=== PATIENT | female | born 1980 | race Caucasian/White ===

== ENCOUNTER 2018-10-16 22:27 | Emergency (ER) | payer BC, OTHER ==
[~2018-10-16] VITALS: Ht 160 cm; Wt 72.6 kg
[2018-10-16] MEDS ORDERED: NITROGLYCERIN SUBLINGUAL 0.4 MG BOTTLE OF 25. SL PRN (23:00)
--- NOTE | 2018-10-16 23:15 | RAD ---
PORTABLE CHEST 1V History: Chest pain Comparison: February 19, 2014 Findings: Single view of the chest is submitted. There is no lobar infiltrate, pneumothorax, or effusion. The pericardial cardiac silhouette is within normal limits in size. Impression: 1. There is no radiographic evidence of acute cardiopulmonary disease. Electronically signed by: Richard Gamez MD (10/16/2018 11:12 PM) [facility]
[2018-10-16] MEDS ORDERED: ASPIRIN 325 MG TABLET PO ONE (23:30)
--- NOTE | 2018-10-16 23:34 | PHYS DOC ---
Past Medical History Past Medical History: Anxiety, Arthritis, GERD, Seizure Additional Past Medical Histor: syncopal episodes, back pain, pulmonary nodule Past Surgical History: , Hysterectomy, Tonsillectomy Additional Past Surgical Histo: breast augmentation, left wrist Alcohol Use: Occasionally Drug Use: None Adult General Chief Complaint Chief Complaint: CHEST PAIN HPI HPI Patient is a 37 year old female with history of seizures on medication, acid reflex, anxiety, arthritis, who presents with with multiple complaints. 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 She states this morning she left work and noticed her bilateral lower extremities was swollen. She states they will painful ambulation. Denies any known injury. She states she has tried to elevate them with no relief on the swelling. She is also complaining of intermittent episodes of 8 out of 10 substernal chest pain nonradiating in nature that has been going on for weeks. She states she has history of acid reflex and has been trying to take acid reflex medications with minimal to no relief. Denies any chance she is , she states she's had a hysterectomy. Denies any shortness of breath. Denies any recent hospitalization. Denies any recent long air TRAVEL. Denies any recent surgeries. PCP Dr. Webster Review of Systems Review of Systems Constitutional: Denies fever or chills [] Eyes: Denies change in visual acuity, redness, or eye pain [] HENT: Denies nasal congestion or sore throat [] Respiratory: Denies cough or shortness of breath [] Cardiovascular: Reports chest pain GI: Denies abdominal pain, nausea, vomiting, bloody stools or diarrhea [] : Denies dysuria or hematuria [] Musculoskeletal: Reports bilateral lower extremity swelling with pain Integument: Denies rash or skin lesions [] Neurologic: Denies headache, focal weakness or sensory changes [] All other systems were reviewed and found to be within normal limits, except as documented in this note. Current Medications Current Medications Current Medications Medications (Trade) Dose Ordered Sig/Nick Start Time Stop Time Status Last Admin Dose Admin Aspirin (Danny Aspirin) 325 mg 1X ONCE 10/16/18 23:30 10/16/18 23:31 DC 10/16/18 23:41 325 MG Famotidine (Pepcid Vial) 20 mg 1X ONCE 10/16/18 23:45 10/16/18 23:46 DC 10/16/18 23:41 20 MG Multi-Ingredient Mouthwash/Gargle (Gi Cocktail) 20 ml 1X ONCE 10/16/18 23:45 10/16/18 23:46 DC 10/16/18 23:42 20 ML Nitroglycerin (Nitrostat) 0.4 mg PRN Q5MIN PRN 10/16/18 23:00 10/17/18 22:59 10/16/18 23:42 0.4 MG Allergies Allergies Allergies Coded Allergies Type Severity Reaction Last Updated Verified acetaminophen Allergy Intermediate 10/16/18 Yes adalimumab Allergy Intermediate 10/16/18 Yes etanercept Allergy Intermediate 10/16/18 Yes morphine Allergy Intermediate 02/19/14 No Physical Exam Physical Exam Constitutional: Well developed, well nourished, no acute distress, non-toxic appearance. [] HENT: Normocephalic, atraumatic, bilateral external ears normal, oropharynx moist, no oral exudates, nose normal. [] Eyes: PERRLA, EOMI, conjunctiva normal, no discharge. [] Neck: Normal range of motion, no tenderness, supple, no stridor. [] Cardiovascular:Heart rate regular rhythm, no murmur [] Lungs & Thorax: Bilateral breath sounds clear to auscultation [] Abdomen: Bowel sounds normal, soft, no tenderness, no masses, no pulsatile masses. [] Skin: Warm, dry, no erythema, psoriasis lesions BLE Back: No tenderness, no CVA tenderness. [] Extremities: No tenderness, no cyanosis, no clubbing, ROM intact, +1 edema noted to bilateral lower extremities. Negative Homans sign bilaterally. Neurologic: Alert and oriented X 3, normal motor function, normal sensory function, no focal deficits noted. [] Psychologic: Affect normal, judgement normal, mood normal. [] Current Patient Data Vital Signs Vital Signs Date Time Temp Pulse Resp B/P (MAP) Pulse Ox O2 Delivery O2 Flow Rate FiO2 10/17/18 00:46 80 16 132/80 (97) 100 Room Air 10/16/18 22:45 98.4 98.4 Lab Values Laboratory Tests Test 10/16/18 23:45 10/17/18 00:01 Urine Collection Type Unknown Urine Color Yellow Urine Clarity Clear Urine pH 7.0 Urine Specific Chase 1.015 Urine Protein Negative mg/dL (NEG-TRACE) Urine Glucose (UA) Negative mg/dL (NEG) Urine Ketones (Stick) Negative mg/dL (NEG) Urine Blood Negative (NEG) Urine Nitrite Negative (NEG) Urine Bilirubin Negative (NEG) Urine Urobilinogen Dipstick 0.2 mg/dL (0.2 mg/dL) Urine Leukocyte Esterase Negative (NEG) Urine RBC Occ /HPF (0-2) Urine WBC 0 /HPF (0-4) Urine Squamous Epithelial Cells Few /LPF Urine Bacteria Few /HPF (0-FEW) Urine Opiates Screen Neg (NEG) Urine Methadone Screen Neg (NEG) Urine Barbiturates Neg (NEG) Urine Phencyclidine Screen Neg (NEG) Urine Amphetamine/Methamphetamine Neg (NEG) Urine Benzodiazepines Screen Neg (NEG) Urine Cocaine Screen Neg (NEG) Urine Cannabinoids Screen Neg (NEG) Urine Ethyl Alcohol Neg (NEG) White Blood Count 8.8 x10^3/uL (4.0-11.0) Red Blood Count 4.23 x10^6/uL (3.50-5.40) Hemoglobin 13.6 g/dL (12.0-15.5) Hematocrit 40.7 % (36.0-47.0) Mean Corpuscular Volume 96 fL (79-100) Mean Corpuscular Hemoglobin 32 pg (25-35) Mean Corpuscular Hemoglobin Concent 34 g/dL (31-37) Red Cell Distribution Width 13.0 % (11.5-14.5) Platelet Count 166 x10^3/uL (140-400) Neutrophils (%) (Auto) 54 % (31-73) Lymphocytes (%) (Auto) 33 % (24-48) Monocytes (%) (Auto) 8 % (0-9) Eosinophils (%) (Auto) 5 % (0-3) H Basophils (%) (Auto) 1 % (0-3) Neutrophils # (Auto) 4.7 x10^3uL (1.8-7.7) Lymphocytes # (Auto) 2.9 x10^3/uL (1.0-4.8) Monocytes # (Auto) 0.7 x10^3/uL (0.0-1.1) Eosinophils # (Auto) 0.5 x10^3/uL (0.0-0.7) Basophils # (Auto) 0.1 x10^3/uL (0.0-0.2) Prothrombin Time 12.1 SEC (11.7-14.0) Prothrombin Time INR 0.9 (0.8-1.1) D-Dimer (Gregoria) 0.63 ug/mlFEU (0.00-0.50) H Sodium Level 141 mmol/L (136-145) Potassium Level 4.2 mmol/L (3.5-5.1) Chloride Level 105 mmol/L (98-107) Carbon Dioxide Level 28 mmol/L (21-32) Anion Gap 8 (6-14) Blood Urea Nitrogen 11 mg/dL (7-20) Creatinine 0.9 mg/dL (0.6-1.0) Estimated GFR (Cockcroft-Gault) 69.7 BUN/Creatinine Ratio 12 (6-20) Glucose Level 61 mg/dL (70-99) L Calcium Level 9.1 mg/dL (8.5-10.1) Magnesium Level 2.1 mg/dL (1.8-2.4) Total Bilirubin 0.2 mg/dL (0.2-1.0) Aspartate Amino Transferase (AST) 20 U/L (15-37) Alanine Aminotransferase (ALT) 31 U/L (14-59) Alkaline Phosphatase 27 U/L (46-116) L Creatine Kinase 92 U/L (26-192) Creatine Kinase MB (Mass) 1.0 ng/mL (0.0-3.6) Creatine Kinase MB Relative Index 1.1 % (0-4) Troponin I Quantitative < 0.017 ng/mL (0.000-0.055) BY-Leh-A-Type Natriuretic Peptide 123 pg/mL (0-124) Total Protein 7.1 g/dL (6.4-8.2) Albumin 3.7 g/dL (3.4-5.0) Albumin/Globulin Ratio 1.1 (1.0-1.7) Thyroid Stimulating Hormone (TSH) 4.402 uIU/mL (0.358-3.74) H Laboratory Tests 10/17/18 00:01 Laboratory Tests 10/17/18 00:01 EKG EKG 22:[address] Trejo sinus rhythm heart rate 81 no STEMI[] Radiology/Procedures Radiology/Procedures []PROCEDURE: VENOUS LOWER EXT BILATERAL Bilateral lower extremity venous ultrasound,: History: Bilateral lower extremity swelling Sonographic evaluation including grayscale, color flow and spectral Doppler analysis of the deep veins of the lower extremities was performed. The femoral and popliteal veins demonstrate normal compressibility and normal responses to distal augmentation maneuvers. Color imaging of those vessels shows no evidence of intraluminal clot. The visualized deep veins in both calves are patent. IMPRESSION: There is no sonographic evidence of deep vein thrombosis in either lower extremity. Electronically signed by: Anoop Rutledge MD (10/17/2018 12:46 AM) [facility] DICTATED and SIGNED BY: ANOOP RUTLEDGE MD DATE: 10/17/18 0046 PROCEDURE: PORTABLE CHEST 1V PORTABLE CHEST 1V History: Chest pain Comparison: February 19, 2014 Findings: Single view of the chest is submitted. There is no lobar infiltrate, pneumothorax, or effusion. The pericardial cardiac silhouette is within normal limits in size. Impression: 1. There is no radiographic evidence of acute cardiopulmonary disease. Electronically signed by: Kristin Quiroz MD (10/16/2018 11:12 PM) [facility] DICTATED and SIGNED BY: KRISTIN QUIROZ MD DATE: 10/16/18 2312 Course & Med Decision Making Course & Med Decision Making Pertinent Labs and Imaging studies reviewed. (See chart for details) This is a 37-year-old female patient presenting to the ED today with bilateral lower extremity swelling with pain on ambulation since this morning as well as intermittent episode of chest pain for a couple weeks. Patient is a smoker she was encouraged to consider smoking cessation EKG is negative. Troponin is normal. CBC, CMP with glucose of 61, patient was given juice in the emergency room. Chest x-rays negative for any acute findings. Venous Dopplers of bilateral lower extremities are negative. Heart score 2 Patient was advised to get JOHNY hose for bilateral lower extremities. Elevation of bilateral lower extremities also recommended. Her TSH was 4.402. Encourage her to follow-up with her own PCP for this. Her vitals are stable. She was discharged. Follow-up with PCP as well as ca rdiologist next week Sharonda Disclaimer Sharonda Disclaimer This electronic medical record was generated, in whole or in part, using a voice recognition dictation system. Departure Departure Impression: Primary Impression: Chest pain Additional Impressions: Acid reflux Smoking addiction Edema Hypothyroidism Disposition: HOME, SELF-CARE Condition: STABLE Referrals: SAM HYDE MD (PCP) Follow-up next week ALISA FONTAINE MD follow up next week Patient Instructions: Chest Pain (Nonspecific), Edema, [id number], Smoking Cessation Additional Instructions: You were evaluated in the emergency room, your workup was negative for any acute findings, your TSH was 4.402 let your primary care doctor know this number and he/she will decide if to put you on thyroid medicines. We highly recommend you wear compression stockings and elevate your bilateral lower extremities. Please ensure you are taking your acid reflex medication. Consider smoking cessation. Follow-up with your primary care doctor as well as the provided assistant chief train dispatcher in the course of next week. Please return to the emergency room at any point symptoms worsen. Problem Qualifiers Primary Impression: Chest pain Chest pain type: unspecified Qualified Codes: R07.9 - Chest pain, unspecified Additional Impressions: Acid reflux Esophagitis presence: esophagitis presence not specified Qualified Codes: K21.9 - Gastro-esophageal reflux disease without esophagitis Edema Edema type: unspecified Qualified Codes: R60.9 - Edema, unspecified Hypothyroidism Hypothyroidism type: unspecified Qualified Codes: E03.9 - Hypothyroidism, unspecified SCARLETT BRICENO OVERHAULER October 16, 2018 23:34
[2018-10-16] MEDS ORDERED: LIDO:MAALOX 1:1 20 ML SINGLE DOSE. SWSW ONE (23:45)
[2018-10-16] MEDS ORDERED: FAMOTIDINE 20 MG/2 ML VIAL IVP ONE (23:45)
[2018-10-17 00:01] LABS: BILIRUBIN,URINE NEGATIVE (NEG); CLARITY,URINE CLEAR; COLOR,URINE YELLOW; NITRITE,URINE NEGATIVE (NEG); PROTEIN,URINE NEGATIVE (NEG-TRACE); UROBILINOGEN,URINE 0.2 mg/dL (0.2 mg/dL)
[2018-10-17 00:10] LABS: BARBITURATES NEG (NEG); BENZODIAZEPINES NEG (NEG); CANNABINOIDS NEG (NEG); COCAINE NEG (NEG); METHADONE NEG (NEG); OPIATES NEG (NEG); PHENCYCLIDINE NEG (NEG)
[2018-10-17 00:11] LABS: BASO # 0.1 x10^3/uL (0.0-0.2); BASO % 1 % (0-3); EOS # 0.5 x10^3/uL (0.0-0.7); EOS % 5 % (0-3); HEMATOCRIT 40.7 % (36.0-47.0); HEMOGLOBIN 13.6 g/dL (12.0-15.5); LYMPH # 2.9 x10^3/uL (1.0-4.8); LYMPH % 33 % (24-48); MEAN CORPUSCULAR HEMOGLOBIN 32 pg (25-35); MEAN CORPUSCULAR HGB CONC 34 g/dL (31-37); MEAN CORPUSCULAR VOLUME 96 fL (79-100); MONO # 0.7 x10^3/uL (0.0-1.1); MONO % 8 % (0-9); NEUT # 4.7 x10^3uL (1.8-7.7); NEUT % 54 % (31-73); PLATELET COUNT 166 x10^3/uL (140-400); RED BLOOD COUNT 4.23 x10^6/uL (3.50-5.40); WHITE BLOOD COUNT 8.8 x10^3/uL (4.0-11.0)
[2018-10-17 00:11] LABS: AMPHETAMINE/METHAMPHETAMINE NEG (NEG)
[2018-10-17 00:19] LABS: BACTERIA,URINE FEW /HPF (0-FEW); RBC,URINE OCC /HPF (0-2); SQUAMOUS EPITHELIAL CELL,UR FEW /LPF; WBC,URINE 0 /HPF (0-4)
[2018-10-17 00:20] LABS: PROTHROMBIN TIME PATIENT 12.1 SEC (11.7-14.0)
[2018-10-17 00:22] LABS: CALCIUM 9.1 mg/dL (8.5-10.1); CREATININE 0.9 mg/dL (0.6-1.0); GFR 69.7; POTASSIUM 4.2 mmol/L (3.5-5.1)
[2018-10-17 00:28] LABS: ALBUMIN 3.7 g/dL (3.4-5.0); ALBUMIN/GLOBULIN RATIO 1.1 (1.0-1.7); MAGNESIUM 2.1 mg/dL (1.8-2.4); TOTAL BILIRUBIN 0.2 mg/dL (0.2-1.0); TOTAL PROTEIN 7.1 g/dL (6.4-8.2)
[2018-10-17 00:46] VITALS: BP 132/80
--- NOTE | 2018-10-17 00:49 | RAD ---
Bilateral lower extremity venous ultrasound,: History: Bilateral lower extremity swelling Sonographic evaluation including grayscale, color flow and spectral Doppler analysis of the deep veins of the lower extremities was performed. The femoral and popliteal veins demonstrate normal compressibility and normal responses to distal augmentation maneuvers. Color imaging of those vessels shows no evidence of intraluminal clot. The visualized deep veins in both calves are patent. IMPRESSION: There is no sonographic evidence of deep vein thrombosis in either lower extremity. Electronically signed by: Anoop Rutledge MD (10/17/2018 12:46 AM) [facility]
--- NOTE | 2018-10-17 06:22 | EKG ---
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
== END 2018-10-17 01:30 | disposition home or self-care (01) ==
LOC: ER 22:27
DX: R07.2 Precordial pain (principal); K21.9 Gastro-esophageal reflux disease without esophagitis; E03.9 Hypothyroidism, unspecified; R60.0 Localized edema; F17.200 Nicotine dependence, unspecified, uncomplicated; Z90.710 Acquired absence of both cervix and uterus; Z88.5 Allergy status to narcotic agent; Z88.6 Allergy status to analgesic agent; Z88.8 Allergy status to other drugs, medicaments and biological substances
CPT/HCPCS: 36415; 71045; 80053; 80307; 81001; 82553; 83735; 83880; 84443; 84484; 85025; 85379; 85610; 93005; 93970; 96374; 99285; J3490

== ENCOUNTER 2019-01-27 03:17 | Emergency (ER) | payer OTHER ==
[~2019-01-27] VITALS: Ht 160 cm; Wt 72.6 kg
[2019-01-27 03:20] VITALS: BP 130/80
--- NOTE | 2019-01-27 03:28 | PHYS DOC ---
Past Medical History Past Medical History: Anxiety, Arthritis, GERD, Seizure Additional Past Medical Histor: syncopal episodes, back pain, pulmonary nodule Past Surgical History: , Hysterectomy, Tonsillectomy Additional Past Surgical Histo: breast augmentation, left wrist Smoking: Cigarettes Alcohol Use: Occasionally Drug Use: None Adult General Chief Complaint Chief Complaint: ANKLE PROBLEM HPI HPI 38-year-old female presents with 3 week history of right ankle pain primarily to medial aspect. Patient reports she was wearing heels and at a concert and ended up rolling her ankle. Reports since did develop some swelling and bruising which has improved however considerable amount of pain with palpation to right medial aspect. Denies other injury. Denies numbness or tingling. Review of Systems Review of Systems Constitutional: Denies fever or chills Musculoskeletal: Denies back pain; reports right ankle pain Integument: Ports bruising to medial aspect of right ankle Neurologic: Denies headache, focal weakness or sensory changes Complete systems were reviewed and found to be within normal limits, except as documented in this note. Allergies Allergies Allergies Coded Allergies Type Severity Reaction Last Updated Verified acetaminophen Allergy Intermediate 10/16/18 Yes adalimumab Allergy Intermediate 10/16/18 Yes etanercept Allergy Intermediate 10/16/18 Yes morphine Allergy Intermediate 02/19/14 No Physical Exam Physical Exam Constitutional: Well developed, well nourished, no acute distress, non-toxic appearance HENT: Normocephalic, atraumatic Eyes: Conjunctiva normal, no discharge Neck: Normal range of motion, supple Skin: Warm, dry Extremities: Right ankle: tenderness to palpation of medial malleolus, no significant ecchymosis noted, mild swelling noted Neurologic: Alert and oriented X 3, no focal deficits noted Psychologic: Affect normal, judgement normal EKG EKG [] Radiology/Procedures Radiology/Procedures [] Course & Med Decision Making Course & Med Decision Making Pertinent Imaging studies reviewed. (See chart for details) Patient presents with right ankle pain with report of rolling it off of heels 3 weeks ago. Patient with continued pain with palpation to medial aspect. Denies need for pain management at this time. XR obtained without signs of fracture. Patient stable for discharge with outpatient follow-up with PCP/orthopedics . Discussed findings and plan with patient and family, who acknowledge understanding and agreement. Dragon Disclaimer Dragon Disclaimer This electronic medical record was generated, in whole or in part, using a voice recognition dictation system. Departure Departure Impression: Primary Impression: Ankle sprain Disposition: 01 HOME, SELF-CARE Condition: STABLE Referrals: SAM HYDE MD (PCP) MARTHA BOWMAN MD Patient Instructions: Ankle Sprain, [id number] Problem Qualifiers Primary Impression: Ankle sprain Encounter type: initial encounter Involved ligament of ankle: unspecified ligament Laterality: right Qualified Codes: S93.401A - Sprain of unspecified ligament of right ankle, initial encounter GERRY BEATTY DO Jan 27, 2019 03:28
--- NOTE | 2019-01-27 06:33 | RAD ---
Right ankle 3 views. HISTORY: Right ankle pain and swelling 3 views were taken of the right ankle. There is not evidence of an acute fracture or osseous abnormality. There is soft tissue swelling. IMPRESSION: 1. No fracture or acute osseous abnormality noted in the right ankle. Electronically signed by: Anoop Rutledge MD (01/27/2019 6:30 AM) [facility]
== END 2019-01-27 03:28 | disposition home or self-care (01) ==
LOC: ER 03:17
DX: S93.491A Sprain of other ligament of right ankle, initial encounter (principal); X50.1XXA Overexertion from prolonged static or awkward postures, initial encounter; Y93.89 Activity, other specified; Y92.89 Other specified places as the place of occurrence of the external cause; Y99.8 Other external cause status; F41.9 Anxiety disorder, unspecified; M19.90 Unspecified osteoarthritis, unspecified site; K21.9 Gastro-esophageal reflux disease without esophagitis; Z98.890 Other specified postprocedural states; Z90.710 Acquired absence of both cervix and uterus; Z90.89 Acquired absence of other organs; F17.210 Nicotine dependence, cigarettes, uncomplicated; Z88.6 Allergy status to analgesic agent; Z88.5 Allergy status to narcotic agent; Z88.8 Allergy status to other drugs, medicaments and biological substances
CPT/HCPCS: 73610; 99284

== ENCOUNTER → 2019-02-19 | Outpatient (CLI) | payer OTHER ==
[2019-01-27 03:20] VITALS: BP 130/80
[~2019-02-19] MED LIST: DIPH1TAB PO; ONDA4TAB10 SL; OXYC5CAP PO
--- NOTE | 2019-02-20 13:54 | CARD ---
MR#: [id number] Date of Study: 02/19/2019 Ordering Physician: ALISA FONTAINE, Referring Physician: Jerson PINZON: Gita Castro RDCS APPROVED REPORT INDICATION Chest Pain Reason : Patient complained of pain PROCEDURE The patient underwent an Exercise Stress Test using the Yg Protocol. Blood pressure, heart rate, a nd EKG were monitored. An Echocardiogram was performed by physics technician in four stages in quad fashion. At peak stress four se lected images were obtained and placed side by side with resting images for comparison. STRESS ECHO FINDINGS The resting Echocardiogram showed normal left ventricular systolic contractility with an estimated Ej ection Fraction of about 60 %. The Resting Echocardiogram showed normal augmentation of myocardial wall segments using a 16 segment model. The Stress Echocardiogram showed normal augmentation of myocardial wall segments using a 16 segment m naomi. The Stress Echocardiogram left ventricular systolic contractility has an estimated Ejection Fraction of about 65%. Test Type: Exercise Stress Nurse/Tech: Bebe Sanchez RN Test Indications: Chest Pain Cardiac History and Allergies: Family history Medications: see EMR Medical History: see EMR Resting ECG: SR Resting Heart Rate: 68 bpm Resting Blood Pressure: 102/45mmHg Pretest Chest Pain: No chest pain Nurse/Tech Notes S1,S2 and lungs clear to ascultation. Patient stated that she has chest pressure in her midsternum a nd left side with or without exertion at times, none presently. She also stated that she has an exte nsive family history of heart disease/illness. Stress Symptoms Dyspnea, Fatigue, chest pressure. POST EXERCISE Reason for Termination: Patient request, Chest pain Target HR: No Max HR: 173 bpm 96% of Maximum Predicted HR: 180 bpm Exercise duration: 9:03 min:sec, 3 Stage Exercise capacity: 10.1METs Max Blood Pressure: 137/52mmHg Blood Pressure response to exercise: Normal blood pressure response during stress. Heart Rate response to exercise: WNL Chest Pain: Yes. see above note Arrhythmia: No. ST Change: Yes. very slight ST change in lead v3 during stress which returned to baseline by end of s tudy. STRESS ECG Stress EKG shows no significant changes. Preliminary Notification Critical Value: No <Conclusion> Normal exercise capacity at 10.1 Mets Normal resting EF and wall motion. Normal stress EF at > 65% and normal wall motion. No significant EKG changes Signed by : Paras Rodarte, Electronically Approved : 02/20/2019 10:38:57
== END | disposition home or self-care (01) ==
LOC: ECHO 13:03
PROVIDERS: ATTEND Internal Medicine Cardiovascular Disease
DX: R07.89 Other chest pain (principal); R53.83 Other fatigue; R06.00 Dyspnea, unspecified; Z82.49 Family history of ischemic heart disease and other diseases of the circulatory system
CPT/HCPCS: 93017; 93350

== ENCOUNTER → 2019-02-26 | Outpatient (CLI) | payer OTHER ==
[2019-01-27 03:20] VITALS: BP 130/80
--- NOTE | 2019-02-26 10:22 | RAD ---
MR#: [id number] Date of Study: 02/26/2019 Ordering Physician: ALISA FONTAINE, Referring Physician: ALISA FONTAINE, Tech: Yenni Roland RVT,SHUWI APPROVED REPORT Patient Location : OUT-PATIENT Indications Lower Extremity Edema : Findings Grayscale images of the bilateral saphenofemoral junctions are grossly unremarkable. The right great saphenous vein and left great saphenous vein do not reveal any obvious evidence of thrombus. The right great saphenous vein measures 4 mm the left great saphenous vein measures 3.5 mm and there is no evidence of reflux. Negative for reflux in the bilateral lesser saphenous veins. Critical Notification Critical Value: No <Conclusion> No significant reflux noted in the lower extremities Signed by : Paras Rodarte, Electronically Approved : 02/26/2019 10:21:49
== END | disposition home or self-care (01) ==
LOC: MERGE 09:00 → US 09:57
PROVIDERS: ATTEND Internal Medicine Cardiovascular Disease
DX: R60.0 Localized edema (principal)
CPT/HCPCS: 93970

== ENCOUNTER → 2019-05-13 | Outpatient (CLI) | payer OTHER ==
[2019-05-13 05:54] LABS: ALBUMIN 3.9 g/dL (3.4-5.0); CALCIUM 9.2 mg/dL (8.5-10.1); GFR 61.4; POTASSIUM 3.9 mmol/L (3.5-5.1); TOTAL BILIRUBIN 0.2 mg/dL (0.2-1.0); TOTAL PROTEIN 7.7 g/dL (6.4-8.2)
[2019-05-13 06:04] LABS: FREE T4 0.93 ng/dL (0.76-1.46); THYROID STIM HORMONE (TSH) 3.438 uIU/mL (0.358-3.74)
== END | disposition home or self-care (01) ==
LOC: LAB 05:12
PROVIDERS: ATTEND Family Medicine
DX: R89.9 Unspecified abnormal finding in specimens from other organs, systems and tissues (principal); F17.210 Nicotine dependence, cigarettes, uncomplicated
CPT/HCPCS: 36415; 80053; 84439; 84443

== ENCOUNTER 2019-11-06 04:41 | Emergency (ER) | payer OTHER ==
[~2019-11-06] VITALS: Ht 160 cm; Wt 72.7 kg
[2019-11-06 05:01] LABS: BILIRUBIN,URINE NEGATIVE (NEG); CLARITY,URINE CLEAR; COLOR,URINE YELLOW; NITRITE,URINE NEGATIVE (NEG); PH,URINE 5.5 (<5.0-8.0); PROTEIN,URINE NEGATIVE (NEG-TRACE); UROBILINOGEN,URINE 0.2 mg/dL (0.2 mg/dL)
[2019-11-06 05:04] LABS: BASO # 0.1 x10^3/uL (0.0-0.2); BASO % 1 % (0-3); EOS # 0.5 x10^3/uL (0.0-0.7); EOS % 4 % (0-3); HEMATOCRIT 45.8 % (36.0-47.0); HEMOGLOBIN 15.3 g/dL (12.0-15.5); LYMPH # 4.5 x10^3/uL (1.0-4.8); LYMPH % 38 % (24-48); MEAN CORPUSCULAR HEMOGLOBIN 32 pg (25-35); MEAN CORPUSCULAR HGB CONC 33 g/dL (31-37); MEAN CORPUSCULAR VOLUME 97 fL (79-100); MONO # 0.8 x10^3/uL (0.0-1.1); MONO % 7 % (0-9); NEUT # 5.9 x10^3/uL (1.8-7.7); NEUT % 51 % (31-73); PLATELET COUNT 240 x10^3/uL (140-400); RED BLOOD COUNT 4.72 x10^6/uL (3.50-5.40); RED CELL DISTRIBUTION WIDTH 13.6 % (11.5-14.5); WHITE BLOOD COUNT 11.7 x10^3/uL (4.0-11.0)
[2019-11-06 05:10] LABS: CALCIUM 9.1 mg/dL (8.5-10.1); CREATININE 1.2 mg/dL (0.6-1.0); GFR 49.5; POTASSIUM 3.6 mmol/L (3.5-5.1)
[2019-11-06 05:10] LABS: SQUAMOUS EPITHELIAL CELL,UR MOD /LPF
[2019-11-06 05:12] LABS: BACTERIA,URINE FEW /HPF (0-FEW)
--- NOTE | 2019-11-06 05:15 | PHYS DOC ---
Past Medical History Past Medical History: Anxiety, Arthritis, GERD, Seizure Additional Past Medical Histor: syncopal episodes, back pain, pulmonary nodule (ORLY TAVAREZ DO) Past Surgical History: , Hysterectomy, Tonsillectomy Additional Past Surgical Histo: breast augmentation, left wrist (ORLY TAVAREZ DO) Smoking Status: Current Every Day Smoker Alcohol Use: Occasionally Drug Use: None (ORLY TAVAREZ DO) General Adult EDM: Chief Complaint: FLANK PAIN HPI: HPI: 39-year-old female past medical history significant for epilepsy, endometriosis s/p hysterectomy, psoriasis and history of pyelonephritis, presents to the ED with complaints of scant bright red wipe when wiping after urinating that started a few hours prior. Patient reports 6 days ago she started experiencing right-sided flank pain that resembled a prior history of pyelonephritis. Was seen 5 days after symptoms started at [facility] due to intermittent fevers, nausea and vomiting. Was diagnosed with right nephrolithiasis and pyelonephritis, no uti? but was prescribed Bactrim DS for 14 days (per pts' understanding). These findings were based on urinalysis. Patient reports no sexual activity for the past 3 months. No trauma. Has never had a CT scan confirming nephrolithiasis. Reports dark urine. Does report persistent right flank pain. ROS: Currently denies any fever, chills, cough, dyspnea, sore throat, chest pain, nausea, vomiting, leg swelling, rash, neck pain, headache, diaphoresis, hematuria, dysuria, increased urinary frequency. (ORLY TAVAREZ DO) Review of Systems: Review of Systems: Constitutional: Denies fever or chills. [] Eyes: Denies change in visual acuity. [] HENT: Denies nasal congestion or sore throat. [] Respiratory: Denies cough or shortness of breath. [] Cardiovascular: Denies chest pain or edema. [] GI: Denies abdominal pain, nausea, vomiting, bloody stools or diarrhea. [] : Denies dysuria. [] Musculoskeletal: Denies back pain or joint pain. [] Integument: Denies rash. [] Neurologic: Denies headache, focal weakness or sensory changes. [] Endocrine: Denies polyuria or polydipsia. [] Lymphatic: Denies swollen glands. [] Psychiatric: Denies depression or anxiety. [] ([facility]) Heart Score: Risk Factors: Risk Factors: DM, Current or recent (<one month) smoker, HTN, HLP, family history of CAD, obesity. Risk Scores: Score 0 - 3: 2.5% MACE over next 6 weeks - Discharge Home Score 4 - 6: 20.3% MACE over next 6 weeks - Admit for Clinical Observation Score 7 - 10: 72.7% MACE over next 6 weeks - Early Invasive Strategies ([facility]) Allergies: Allergies: Allergies Coded Allergies Type Severity Reaction Last Updated Verified Penicillins Allergy Intermediate 02/19/19 Yes acetaminophen Allergy Intermediate 10/16/18 Yes adalimumab Allergy Intermediate 10/16/18 Yes etanercept Allergy Intermediate 10/16/18 Yes morphine Allergy Intermediate 02/19/14 No ([facility]) Physical Exam: PE: Constitutional: Well developed, well nourished, no acute distress, non-toxic a ppearance. [] HENT: Normocephalic, atraumatic, bilateral external ears normal, oropharynx moist, no oral exudates, nose normal. [] Eyes: EOMI, conjunctiva normal, no discharge. [] Neck: Normal range of motion, no tenderness, supple, no stridor. [] Cardiovascular:Heart rate regular rhythm, no murmur [] Lungs & Thorax: Bilateral breath sounds clear to auscultation [] Abdomen: Bowel sounds normal, soft, no tenderness, no masses, no pulsatile masses. [] Skin: Warm, dry, no erythema, no rash. [] no n/v -I have worked with pt in ed for > 2 hours and observed Back: No tenderness, right CVA tenderness. [] Extremities: No tenderness, no cyanosis, no clubbing, ROM intact, no edema. [] Neurologic: Alert and oriented X 3, normal motor function, normal sensory function, no focal deficits noted. [] Psychologic: Affect normal, judgement normal, mood normal. [] Urine sample normal yellow w/no sediment/cloudiness ([facility]) Current Patient Data: Labs: Laboratory Tests Test 11/06/19 04:45 11/06/19 04:55 Urine Collection Type Unknown Urine Color Yellow Urine Clarity Clear Urine pH 5.5 (<5.0-8.0) Urine Specific [place] 1.025 (1.000-1.030) Urine Protein Negative mg/dL (NEG-TRACE) Urine Glucose (UA) Negative mg/dL (NEG) Urine Ketones (Stick) Trace mg/dL (NEG) Urine Blood Negative (NEG) Urine Nitrite Negative (NEG) Urine Bilirubin Negative (NEG) Urine Urobilinogen Dipstick 0.2 mg/dL (0.2 mg/dL) Urine Leukocyte Esterase Negative (NEG) Urine RBC 3-5 /HPF (0-2) Urine WBC 1-4 /HPF (0-4) Urine Squamous Epithelial Cells Mod /LPF Urine Bacteria Few /HPF (0-FEW) Urine Mucus Marked /LPF White Blood Count 11.7 x10^3/uL (4.0-11.0) H Red Blood Count 4.72 x10^6/uL (3.50-5.40) Hemoglobin 15.3 g/dL (12.0-15.5) Hematocrit 45.8 % (36.0-47.0) Mean Corpuscular Volume 97 fL (79-100) Mean Corpuscular Hemoglobin 32 pg (25-35) Mean Corpuscular Hemoglobin Concent 33 g/dL (31-37) Red Cell Distribution Width 13.6 % (11.5-14.5) Platelet Count 240 x10^3/uL (140-400) Neutrophils (%) (Auto) 51 % (31-73) Lymphocytes (%) (Auto) 38 % (24-48) Monocytes (%) (Auto) 7 % (0-9) Eosinophils (%) (Auto) 4 % (0-3) H Basophils (%) (Auto) 1 % (0-3) Neutrophils # (Auto) 5.9 x10^3/uL (1.8-7.7) Lymphocytes # (Auto) 4.5 x10^3/uL (1.0-4.8) Monocytes # (Auto) 0.8 x10^3/uL (0.0-1.1) Eosinophils # (Auto) 0.5 x10^3/uL (0.0-0.7) Basophils # (Auto) 0.1 x10^3/uL (0.0-0.2) Sodium Level 138 mmol/L (136-145) Potassium Level 3.6 mmol/L (3.5-5.1) Chloride Level 102 mmol/L (98-107) Carbon Dioxide Level 22 mmol/L (21-32) Anion Gap 14 (6-14) Blood Urea Nitrogen 14 mg/dL (7-20) Creatinine 1.2 mg/dL (0.6-1.0) H Estimated GFR (Cockcroft-Gault) 49.5 BUN/Creatinine Ratio 12 (6-20) Glucose Level 97 mg/dL (70-99) Calcium Level 9.1 mg/dL (8.5-10.1) Total Bilirubin Pending Aspartate Amino Transferase (AST) Pending Alanine Aminotransferase (ALT) Pending Alkaline Phosphatase Pending Creatine Kinase Pending Total Protein Pending Albumin Pending Albumin/Globulin Ratio Pending Laboratory Tests 11/06/19 04:55 Laboratory Tests 11/06/19 04:55 Vital Signs: Vital Signs Date Time Temp Pulse Resp B/P (MAP) Pulse Ox O2 Delivery O2 Flow Rate FiO2 11/06/19 04:45 98.3 83 20 124/60 (81) 98 Room Air 98.3 (ORLY TAVAREZ DO) EKG: EKG: [] (ORLY TAVAREZ DO) Radiology/Procedures: Radiology/Procedures: [] Impression: Patient afebrile, hemodynamically stable. No leukocytosis or leukopenia. Creatinine is 1.2 which is elevated from prior renal function. CK within normal limits. Patient has had 1.5 days of Bactrim. Urinalysis shows few bacteria, WBCs 134 with no nitrates or leukocyte esterase. There are 3-5 RBCs but no gross blood. Renal ultrasound pending. If no hydro, recommend dc w/keflex (PCN allergy-hives) in addition to bactrim. Suspect recently passes stone w/hemorrhagic cystitis from drug resistant uti-has had 4.5 days of abx (ORLY TAVAREZ DO) Radiology/Procedures: [facility] [address] [place] [address] IMAGING REPORT Signed PATIENT: SHIRAZ ARROYO MACCOUNT: [id number] : 1980 LOCATION: ER AGE: 39 SEX: F EXAM STATUS: REG ER ORD. PHYSICIAN: ORLY TAVAREZ DO REASON: flank pain PROCEDURE: RENAL COMPLETE BILATERAL INDICATION: Reason: flank pain / Spl. Instructions: / History: COMPARISON: September 2016 TECHNIQUE: Grayscale and color ultrasound images obtained of the bilateral kidneys and bladder. FINDINGS: Right Kidney: 107 mm. No hydronephrosis. Left Kidney: 103 mm. No hydronephrosis. Partially visualized liver is mildly echogenic. Mild fatty infiltration not excluded. Bladder: No gross abnormality. IMPRESSION: * No hydronephrosis bilaterally. Electronically signed by: Domonique Mendiola MD (11/06/2019 6:25 AM) [id number] DICTATED and SIGNED BY: DOMONIQUE MENDIOLA MD DATE: 11/06/19624 [facility] [address] [place] [address] IMAGING REPORT Signed PATIENT: SHIRAZ ARROYO MACCOUNT: [id number] : 1980 LOCATION: ER AGE: 39 SEX: F EXAM STATUS: REG ER ORD. PHYSICIAN: KATE SANABRIA DO REASON: RIGHT FLANK PAIN PROCEDURE: CT ABDOMEN PELVIS WO CONTRAST CT ABDOMEN PELVIS WO CONTRAST INDICATION: Reason: RIGHT FLANK PAIN / Spl. Instructions: / History: EXAM: Noncontrast CT of the abdomen and pelvis. Coronal and sagittal reformatted images were performed. PQRS compliance statement: One or more of the following individualized dose reduction techniques were utilized for this examination: 1. Automated exposure control 2. Adjustment of the mA and/or kV according to patient size 3. Use of iterative reconstruction technique COMPARISON: 10/01/2016 FINDINGS: No free air, free fluid, or fluid collection. Lower chest: The visualized lower lungs are aerated. No pleural or pericardial effusion. ABDOMEN: Liver: The noncontrast liver is homogeneous in attenuation. Gallbladder and biliary: Normal gallbladder without radiopaque stone. Normal caliber bile ducts. Spleen: Normal spleen. Pancreas: The noncontrast pancreas is homogeneous in attenuation without peripancreatic inflammatory changes. Adrenal glands: Normal adrenal glands. Kidneys and ureters: No opaque urinary calculi. Normal kidneys and ureters. GI tract: The stomach is decompressed and poorly evaluated. Normal caliber small bowel and colon. Normal appendix. Vascular structures: Normal caliber abdominal aorta. Lymph nodes: No lymphadenopathy in the abdomen or pelvis. PELVIS: Genitourinary system: Normal bladder. SKELETAL STRUCTURES AND SOFT TISSUES: No fracture or destructive lesion in the visualized skeleton. IMPRESSION: No acute findings. Electronically signed by: Kristin Michael MD (11/06/2019 7:09 AM) [id number] DICTATED and SIGNED BY: KRISTIN MICHAEL MD DATE: 11/06/19708 (KATE SANABRIA DO) Course & Med Decision Making: Course & Med Decision Making Pertinent Labs and Imaging studies reviewed. (See chart for details) [] (ORLY TAVAREZ DO) Course & Med Decision Making Patient is a 39-year-old female who was evaluated in the ER today due to right flank pain, CT scan her abdomen pelvis and ultrasound did not show any acute problem besides a fatty infiltration of her liver. Her lab work was normal as well. Patient will be discharged home. (KATE SANABRIA DO) Dragon Disclaimer: Dragon Disclaimer: This electronic medical record was generated, in whole or in part, using a voice recognition dictation system. (ORLY TAVAREZ DO) Departure Departure Impression: Primary Impression: Flank pain Disposition: 01 HOME, SELF-CARE Condition: IMPROVED Referrals: SAM HYDE MD (PCP) PLEASE FOLLOW UP WITH YOUR FAMILY DOCTOR NEXT WEEK Patient Instructions: Flank Pain Additional Instructions: Thank you for visiting our Emergency Department. We appreciate you trusting us with your care. If any additional problems come up don't hesitate to return to visit us. Please follow up with your primary care provider so they can plan additional care if needed and know about the problem that you had. If symptoms worsen come back to the Emergency Department. Any concerning symptoms that start such as chest pain, shortness of air, weakness or numbness on one side of the body, running high fevers or any other concerning symptoms return to the ER. Justicifation of Admission Dx: Justifications for Admission: Justification of Admission Dx: N/A (ORLY TAVAREZ DO) Justification of Admission Dx: N/A (KATE SANABRIA DO) ORLY TAVAREZ DO Nov 06, 2019 05:15 KATE SANABRIA DO Nov 06, 2019 07:21
[2019-11-06 05:16] LABS: ALBUMIN 4.3 g/dL (3.4-5.0); ALBUMIN/GLOBULIN RATIO 1.1 (1.0-1.7); TOTAL BILIRUBIN 0.1 mg/dL (0.2-1.0); TOTAL PROTEIN 8.1 g/dL (6.4-8.2)
[2019-11-06 06:20] VITALS: BP 107/64
--- NOTE | 2019-11-06 06:28 | RAD ---
INDICATION: Reason: flank pain / Spl. Instructions: / History: COMPARISON: September 2016 TECHNIQUE: Grayscale and color ultrasound images obtained of the bilateral kidneys and bladder. FINDINGS: Right Kidney: 107 mm. No hydronephrosis. Left Kidney: 103 mm. No hydronephrosis. Partially visualized liver is mildly echogenic. Mild fatty infiltration not excluded. Bladder: No gross abnormality. IMPRESSION: * No hydronephrosis bilaterally. Electronically signed by: Monico Stover MD (11/06/2019 6:25 AM) [id number]
--- NOTE | 2019-11-06 07:12 | RAD ---
CT ABDOMEN PELVIS WO CONTRAST INDICATION: Reason: RIGHT FLANK PAIN / Spl. Instructions: / History: EXAM: Noncontrast CT of the abdomen and pelvis. Coronal and sagittal reformatted images were performed. PQRS compliance statement: One or more of the following individualized dose reduction techniques were utilized for this examination: 1. Automated exposure control 2. Adjustment of the mA and/or kV according to patient size 3. Use of iterative reconstruction technique COMPARISON: 10/01/2016 FINDINGS: No free air, free fluid, or fluid collection. Lower chest: The visualized lower lungs are aerated. No pleural or pericardial effusion. ABDOMEN: Liver: The noncontrast liver is homogeneous in attenuation. Gallbladder and biliary: Normal gallbladder without radiopaque stone. Normal caliber bile ducts. Spleen: Normal spleen. Pancreas: The noncontrast pancreas is homogeneous in attenuation without peripancreatic inflammatory changes. Adrenal glands: Normal adrenal glands. Kidneys and ureters: No opaque urinary calculi. Normal kidneys and ureters. GI tract: The stomach is decompressed and poorly evaluated. Normal caliber small bowel and colon. Normal appendix. Vascular structures: Normal caliber abdominal aorta. Lymph nodes: No lymphadenopathy in the abdomen or pelvis. PELVIS: Genitourinary system: Normal bladder. SKELETAL STRUCTURES AND SOFT TISSUES: No fracture or destructive lesion in the visualized skeleton. IMPRESSION: No acute findings. Electronically signed by: Richard Michael MD (11/06/2019 7:09 AM) [id number]
== END 2019-11-06 07:45 | disposition home or self-care (01) ==
LOC: ER 04:41
DX: R10.9 Unspecified abdominal pain (principal); R11.2 Nausea with vomiting, unspecified; R50.9 Fever, unspecified; M19.90 Unspecified osteoarthritis, unspecified site; F41.9 Anxiety disorder, unspecified; N11.9 Chronic tubulo-interstitial nephritis, unspecified; K21.9 Gastro-esophageal reflux disease without esophagitis; F17.200 Nicotine dependence, unspecified, uncomplicated; Z90.710 Acquired absence of both cervix and uterus; Z98.890 Other specified postprocedural states; Z90.89 Acquired absence of other organs; Z88.0 Allergy status to penicillin; Z88.2 Allergy status to sulfonamides; Z88.8 Allergy status to other drugs, medicaments and biological substances; Z88.6 Allergy status to analgesic agent
CPT/HCPCS: 36415; 74176; 76770; 80053; 81001; 82550; 85025; 99285

== ENCOUNTER → 2020-04-24 | Outpatient (CLI) | payer OTHER | LOC: LAB 22:15 | PROVIDERS: ATTEND Internal Medicine Pulmonary Disease | DX: R50.9 Fever, unspecified (principal); R53.81 Other malaise; R11.0 Nausea; Z20.828 Contact with and (suspected) exposure to other viral communicable diseases | CPT/HCPCS: U0003 ==

== ENCOUNTER → 2020-05-28 | Outpatient (CLI) | payer OTHER | LOC: LAB 14:05 | PROVIDERS: ATTEND Internal Medicine Pulmonary Disease | DX: U07.1 COVID-19 (principal); R05 Cough; R09.81 Nasal congestion; R11.2 Nausea with vomiting, unspecified; M79.10 Myalgia, unspecified site; R53.81 Other malaise; R43.9 Unspecified disturbances of smell and taste | CPT/HCPCS: U0003 ==